=== PATIENT | male | born 1960 | race African-American/Black ===

== ENCOUNTER 2018-09-22 13:16 | Inpatient (IN) | payer OTHER ==
[~2018-09-22] VITALS: Ht 180.3 cm; Wt 68.0 kg
[~2018-09-22 13:16] MED LIST: ERYTHROMYCIN E3.5 G3 OPHTHALMIC
[2018-09-22] MEDS ORDERED: NOHOMEMEDICATIONS (13:22)
[2018-09-22 13:32] LABS: ABSOLUTE BASOPHILS 0.1 thou/uL (0.0-0.2); ABSOLUTE EOSINOPHILS 0.1 thou/uL (0.0-0.7); ABSOLUTE LYMPHOCYTES 1.7 thou/uL (0.8-5.3); ABSOLUTE MONOCYTES 0.7 thou/uL (0.0-1.2); ABSOLUTE NEUTROPHILS 2.2 thou/uL (1.6-8.1); BASOPHILS 1.4 %; HEMATOCRIT 47.3 % (42.0-52.0); HEMOGLOBIN 15.3 gm/dL (14.0-18.0); MCH 28.6 pg (26.0-34.0); MCHC 32.3 g/dL (28.0-37.0); MCV 88.7 fL (80.0-100.0); MONOCYTES 14.6 %; MPV 8.6 fl. (7.2-11.1); NUCLEATED RBCS 0 /100WBC; PLATELET COUNT* 200 thou/uL (150-400); RBC 5.34 mil/uL (4.50-6.00); RDW-CV 14.9 % (10.5-14.5); WBC 4.8 thou/uL (4.0-11.0)
[2018-09-22 13:52] LABS: ANION GAP 9 mmol/L (7-16); BUN 19 mg/dL (7-18); CALCIUM 8.7 mg/dL (8.5-10.1); CHLORIDE 104 mmol/L (98-107); CO2 24 mmol/L (21-32); GLUCOSE 165 mg/dL (70-99); POTASSIUM 3.3 mmol/L (3.5-5.1); SODIUM 137 mmol/L (136-145)
[2018-09-22 13:57] LABS: ALBUMIN 2.8 g/dL (3.4-5.0); ALKALINE PHOSPHATASE 101 U/L (46-116); CREATININE 1.4 mg/dL (0.6-1.3); LIPASE 148 U/L (73-393); MAGNESIUM 1.8 mg/dL (1.8-2.4); NT-PRO BRAIN NAT PEPTIDE 95 pg/mL (<300); SGOT 15 U/L (15-37); SGPT 15 U/L (30-65); TOTAL BILIRUBIN 0.2 mg/dL (<0.1-1.0); TOTAL PROTEIN 6.8 g/dL (6.4-8.2); TROPONIN-I LEVEL <0.06 ng/mL (<0.06)
[2018-09-22] MEDS ORDERED: NORCO 5-325 TA1 EAC1 PO (15:10)
--- NOTE | 2018-09-22 16:12 | EKG ---
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
[2018-09-22 16:27] LABS: CALCIUM 8.9 mg/dL (8.5-10.1); CREATININE 1.2 mg/dL (0.6-1.3); POTASSIUM 4.1 mmol/L (3.5-5.1)
[2018-09-22 18:40] VITALS: BP 150/98
[2018-09-22 18:46] VITALS: BP 147/97
--- NOTE | 2018-09-22 19:12 | NUR ---
ASSUMED PT CARE AT 1840, CAME FROM ER. PT GET SITUATED TO ROOM. TRACING SR ON CARPET WINDER. AOX4, UP AD FABRIZIO. RA. L AC IV ACCESS INTACT. VSS. CALL LIGHT WITHIN REACH. HOURLY ROUNDING GIVE REPORT TO ICE CREAM SCOOPER NURSE.
[2018-09-22 20:00] VITALS: BP 143/82
[2018-09-22 23:55] VITALS: BP 101/65
[2018-09-23 04:00] VITALS: BP 125/80
--- NOTE | 2018-09-23 04:56 | NUR ---
ASSUMED PT CARE AT 1910. PT VOICED NO CONCERNS/DENIES CHEST PAIN THIS SHIFT. 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 PT UP AD FABRIZIO. HOURLY ROUNDING COMPLETED. CALL LIGHT WITHIN REACH. NPO FOR CARDIOLOGY CONSULT.
[2018-09-23 05:39] LABS: HEMATOCRIT 48.3 % (42.0-52.0); HEMOGLOBIN 15.9 gm/dL (14.0-18.0); MCH 29.1 pg (26.0-34.0); MCHC 32.9 g/dL (28.0-37.0); MCV 88.6 fL (80.0-100.0); MPV 8.9 fl. (7.2-11.1); RBC 5.45 mil/uL (4.50-6.00); RDW-CV 15.3 % (10.5-14.5); WBC 4.4 thou/uL (4.0-11.0)
[2018-09-23 06:05] LABS: ANION GAP 8 mmol/L (7-16); BUN 20 mg/dL (7-18); CALCIUM 8.8 mg/dL (8.5-10.1); CHLORIDE 106 mmol/L (98-107); CO2 26 mmol/L (21-32); CREATININE 1.3 mg/dL (0.6-1.3); GLUCOSE 100 mg/dL (70-99); POTASSIUM 4.1 mmol/L (3.5-5.1); SODIUM 140 mmol/L (136-145); TROPONIN-I LEVEL <0.06 ng/mL (<0.06)
[2018-09-23 08:00] VITALS: BP 141/91
--- NOTE | 2018-09-23 10:21 | EKG ---
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[place] : 1960 Requested By: Jamie Aguayo Order Number: [id number] MD: Ilana Coronado Measurements Intervals [place] Rate: 78 P: 72 MI: 132 QRS: -17 QRSD: 90 T: 56 QT: 374 QTc: 426 Interpretive Statements Sinus rhythm Left ventricular hypertrophy ST elevation, consider early repolarization Compared to ECG 09/22/2018 13:20:13 ST (T wave) deviation still present Electronically Signed On 09-23-2018 10:21:00 CDT by Ilana Coronado [email or web address] <ELECTRONICALLY SIGNED> By: Ilana Coronado MD, [facility] 09/23/18 1021 1511 1511 Ilana Coronado MD, [facility] /EPI
[2018-09-23 11:47] VITALS: BP 138/85
--- NOTE | 2018-09-23 13:10 | 2DMMODE ---
[place] [address] 2 D/M-MODE ECHOCARDIOGRAM Name: ILANA ACE Room: [address] IN [facility]#: [id number] Admission: 09/22/18 Attend Phys: Levon Solis Discharge: Date of : 56 Date of Service: 09/23/18 1309 Report #: [id number] THIS REPORT FOR: //name// APPROVED REPORT Study performed: 09/23/2018 11:48:55 EXAM: Comprehensive 2D, Doppler, and color-flow Echocardiogram Patient Location: In-Patient Room #: [facility] Status: routine BSA: 1.92 HR: 69 bpm Rhythm: NSR Other Information Study Quality: Good Indications Chest Pain 2D Dimensions IVSd: 10.96 (7-11mm) LVOT Diam: 21.22 (18-24mm) LVDd: 54.93 mm PWd: 9.60 (7-11mm) Ascending Ao: 27.04 (22-36mm) LVDs: 48.30 (25-40mm) Aortic Root: 28.78 mm LV Single Plane 4CH: 35.10 % Volumes Left Atrial Volume (Systole) LA ESV Index: 30.70 mL/m2 Aortic Valve AoV Peak Fawad.: 1.21 m/s AO Peak Gr.: 5.82 mmHg LVOT Max P.89 mmHg AO Mean Gr.: 3.24 mmHg LVOT Mean P.32 mmHg LVOT Max V: 0.85 m/s AO V2 VTI: 20.34 cm LVOT Mean V: 0.52 m/s DAMIÁN (VTI): 2.54 cm2 LVOT V1 VTI: 14.60 cm Mitral Valve E/A Ratio: 0.91 MV Decel. Time: 205.12 [place] [address] 2 D/M-MODE ECHOCARDIOGRAM Name: ILANA ACE Room: [address] IN [facility].#: [id number] Admission: 09/22/18 Attend Phys: Levon Solis Discharge: Date of : 56 Date of Service: 09/23/18 1309 Report #: [id number] MV E Max Fawad.: 0.49 m/s MV PHT: 59.49 ms MVA (PHT): 3.70 cm2 TDI E/Lateral E': 5.44 E/Medial E': 7.00 Medial E' Fawad.: 0.07 m/s Lateral E' Fawad.: 0.09 m/s Pulmonary Valve PV Peak Fawad.: 0.84 m/s PV Peak Gr.: 2.84 mmHg Tricuspid Valve RAP Estimate: 5.00 mmHg TR Peak Gr.: 24.14 mmHg RVSP: 29.00 mmHg PA Pressure: 29.00 mmHg Left Ventricle The left ventricle is normal size. There is global hypokinesis of the left ventricle. There is normal left ventricular wall thickness. Left ventricular systolic function is severely decreased. LVEF is 25-30%. Grade I - abnormal relaxation pattern. Right Ventricle The right ventricle is normal size. The right ventricular systolic function is normal. Atria Left atrium is mildly dilated. The right atrium size is normal. Aortic Valve Mild aortic valve sclerosis. No aortic regurgitation is present. There is no aortic valvular stenosis. Mitral Valve The mitral valve is normal in structure. Mild mitral regurgitation. No evidence of mitral valve stenosis. Tricuspid Valve The tricuspid valve is normal in structure. Trace tricuspid regurgitation. estimated pa pressure 30 mm Hg Pulmonic Valve The pulmonary valve is normal in structure. There is no pulmonic [place]vular [place] [address] 2 D/M-MODE ECHOCARDIOGRAM Name: ILANA ACE Room: [address]#: [id number] Admission: 09/22/18 Attend Phys: Levon Solis Discharge: Date of : 56 Date of Service: 09/23/18 1309 Report #: [id number] Great Vessels The aortic root is normal in size. IVC is normal in size and collapses >50% with inspiration. Pericardium There is no pericardial effusion. <Conclusion> LVEF is 25-30%. Left atrium is mildly dilated. Mild mitral regurgitation. Trace tricuspid regurgitation. estimated pa pressure 30 mm Hg <ELECTRONICALLY SIGNED> By: Ilana Coronado MD, FACC 09/23/18 1309 1309 1309 Ilana Coronado MD, FACC /INF
--- NOTE | 2018-09-23 13:35 | NUR ---
ASSUMED CARE OF PATIENT THIS AM AT 0730. PATIENT IS ALERT AMD ORIENTED X 4. HE DENIES CHEST PAIN AND SOA. TELE SHOWS NSR. PATIENT KEPT NPO FOR CARDIOLOGY. STRESS ECHO ORDERED. PATIENT TAKEN DOWN FOR TESTS PER W/C. STRESS ECHO CANCELLED DUE TO LOW EF. PATIENT RETURNED TO THE ROOM AND DIET WAS ORDERED. TIN RECOVERY WORKER WILL DISCUSS TX OPTIONS WITH PATIENT. WILL CONTINUE TO MONITOR COMFORT. NO FALLS OR INJURY.
--- NOTE | 2018-09-23 15:16 | NUR ---
Pt asleep when CM went to assess, will f/u later
[2018-09-23 16:00] VITALS: BP 144/94
[2018-09-23 20:00] VITALS: BP 156/98
[2018-09-23 23:55] VITALS: BP 144/92
[2018-09-24] VITALS (7 sets, daily range): BP systolic 118–151; BP diastolic 67–98
[2018-09-24 05:23] LABS: CHOLESTEROL 181 mg/dL (<200); HDL CHOLESTEROL 43 mg/dL (>40); LDL CHOLESTEROL 115 mg/dL (<100); TC:HDL 4.2 Ratio (Not establshd); TRIGLYCERIDE 119 mg/dL (<150); VLDL 24 mg/dL (<40)
[2018-09-24 05:26] LABS: SERUM ASSESSMENT Clear
--- NOTE | 2018-09-24 05:39 | NUR ---
ASSUMED PATIENT CARE AT 1900. PATIENT ALERT AND ORIENTED TIMES FOUR. NO COMPLAITS OF PAIN OR DISCOMFORT NOTED. PROJECT COACH AND HOURLY ROUNDING COMPLETED CHARTED.
--- NOTE | 2018-09-24 10:22 | NUR ---
ASSUMED CARE OF PT AROUND 0730 THIS AM. REFER TO ASSESSMENT. 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 DENIED PAIN THIS AM. REQUESTING NICOTINE PATCH POST CARDIAC CATH. WILL DISCUSS WITH PHYSICIAN. NO OTHER CONCERNS AT THIS TIME. CLWR. WCTM.
--- NOTE | 2018-09-24 11:44 | CARD ---
[address] [address] CARDIAC CATH REPORT Name: ILANA ACE Room: [address] IN [facility]#: [id number] Admission: 09/22/18 Attend Phys: Levon Baird, Discharge: Date of : 56 Report #: [id number] THIS REPORT FOR: //name// APPROVED REPORT Study performed: 09/24/2018 09:14:55 Patient Details Patient Status: In-Patient Room #: 212 The patient is a 58 year-old male Event Personnel Cheng Rosen Accountant Machine Processing, Gail Cortes Bobtail Driver, Eduar Fraga (R) Monitor, Bert Recinos MANAGER SUPPLIER Scrub Procedures Performed Left Heart Cath w/or w/o Coronaries Procedure Narrative A Slender Glidesheath sheath was inserted into the right radial artery. Coronary angiography was performed using coronary diagnostic catheters. The right coronary system was accessed and visualized with a Diagnostic 3DRC 5fr catheter. The left coronary system was accessed and visualized with a Diagnostic DCR: [place] 4.0 5fr catheter. The left ventricle was accessed and visualized with a Diagnostic PC: [place] 5fr catheter. Left ventricular/Aortic Valve gradient assessed via catheter pullback. The patient tolerated the procedure well and there were no complications associated with the procedure. Intraoperative Conscious Sedation Sedation start time: 10:14 Case end Time: 10:30 Fentanyl 25 mcg Versed 2 mg Fluoro Time: 5.9 minutes Dose: DAP 2713 cGycm2 418 mGy Contrast Type and Amount: Omnipaque 80 ml Coronary Angiography The patient's coronary anatomy is right dominant. [place] Artery Percent Stenosis Left Main: 0 % Prox LAD: 0 % Mid/Distal LAD: 0 % Circumflex: 0 % RCA: 0 % Ramus: 0 %[place] [address] CARDIAC CATH REPORT Name: ILANA ACE Room: [address]#: [id number] Admission: 09/22/18 Attend Phys: Levon Barid, Discharge: Date of : 56 Report #: [id number] Left Ventriculography The left ventricle is normal in size with reduced contractility. The left ventricular ejection fraction is estimated to be 45-50%. Left ventricular wall motion abnormalities are not present. There is no mitral insufficiency. Hemodynamics The aortic pressure is 122/82 mmHg with a mean of 90 mmHg. The left ventricular pressure is 116/1 mmHg with a mean of mmHg. The left ventricular end diastolic pressure is 4 mmHg. Conclusion 1. normal coronary arteries 2. NICM Recommendations Aggressive Medical Therapy <ELECTRONICALLY SIGNED> By: Cheng Rosen MD, [facility] 09/24/18 1143 1143 1143Cheng Rosen MD, FACC /INF
--- NOTE | 2018-09-24 14:00 | CON ---
[address] [address] CONSULTATION Name: ILANA ACE Room: [address] IN .R.#: [id number] Admission: 09/22/18 Attend Phys: Levon Baird, Discharge: Date of : 56 Report #: [id number] THIS REPORT FOR: //name// CC: [place] physician/PCP Levon Baird DATE OF SERVICE: 09/23/2018 HISTORY OF PRESENT ILLNESS: The patient is a 58-year-old black male who I was asked to see in the hospital after he complained of chest pain. The patient has no previous history of heart disease. In fact, he has not seen a doctor for several years. He does not exercise on a regular basis. He does note that when he weighs more than 155 pounds, he will have a discomfort in his chest. Yesterday, he was at work when he felt a discomfort in his chest, felt short of breath, diaphoretic, somewhat nauseated. He describes a sharp pain. There is no radiation of the pain. His brought him to the Emergency Room. The pain lasted several hours and then resolved. I was asked to see him for further evaluation and treatment. He denied the pain being related to food. He had no belch with the episode. He has had no recent bleeding. Denied any rash on his chest. He has had a cough, but the pain is not related to coughing. He denies exertional dyspnea, palpitations, syncope or leg pain. PAST MEDICAL HISTORY: He has had no surgical procedures. No history of hypertension, diabetes, hyperlipidemia. MEDICATIONS: He is on no medications. ALLERGIES: He has no known drug allergies. FAMILY HISTORY: Negative for heart disease. SOCIAL HISTORY: He is . He and his live in [place]. 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 Unfortunately, he has no medical insurance. He smokes half pack of cigarettes a day. Rarely drinks alcohol. No illicit drug use. REVIEW OF SYSTEMS: He has had no history of stroke, asthma. He has had a peptic ulcer in the past. No liver disease, no kidney disease, no cancer. No psychiatric illness. No chronic skin condition. PHYSICAL EXAMINATION: GENERAL: Revealed a middle-aged male, lying in bed. He appeared in no distress. VITAL SIGNS: He had a blood pressure of 130/80, pulse is 80. He was afebrile. HEENT: He was anicteric. Conjunctivae pink. Mucous membranes moist. NECK: Neck veins were nondistended. No carotid bruits[place] [address] CONSULTATION Name: ILANA ACE Room: [address] IN ..#: [id number] Admission: 09/22/18 Attend Phys: Levon Baird, Discharge: Date of : 56 Report #: [id number] CHEST: Clear to auscultation. CARDIOVASCULAR: Regular rate and rhythm. ABDOMEN: Soft. EXTREMITIES: Had no edema. Posterior tibial pulse 2+ bilaterally. SKIN: Warm, dry. NEUROLOGIC: Nonfocal. LYMPH: No adenopathy. MUSCULOSKELETAL: No joint effusion. LABORATORY DATA: His ECG on admission yesterday showed a normal sinus rhythm with early repolarization, otherwise unremarkable ECG. His workup yesterday in the Emergency Room, he had a portable chest x-ray that showed normal heart size, clear lung nieto. His lab work, sodium 140, BUN 20, creatinine 1.3, glucose 100. Liver function studies were normal. Troponins all 0.06. White blood cell count 4.4, hemoglobin 15.9. IMPRESSION AND RECOMMENDATIONS: 1. Chest pain. Risk factor is coronary artery disease. No evidence of acute coronary syndrome. Recommend stress echocardiogram. 2. Tobacco abuse. <ELECTRONICALLY SIGNED> By: Ilana Coronado MD, FACC 09/24/18 1400 0855 [id number] Coronado MD, FACC /nt
[2018-09-24] MEDS ORDERED: COZAAR 25 MG TA25 M1 PO (14:03)
[2018-09-24] MEDS ORDERED: CARVEDILOL3.125 MG PO (14:03)
--- NOTE | 2018-09-24 15:04 | NUR ---
DC INSTRUCTIONS GIVEN TO PATIENT AT THIS TIME. PT VERBALIZES UNDERSTANDING. TWO SCRIPTS AND WORK RELEASE GIVEN AT DC. NO OTHER CONCERNS AT THIS TIME. CLWR. WCTM.
--- NOTE | 2018-09-28 10:39 | D ---
[address] [address] DISCHARGE SUMMARY Name: ILANA ACE Room: [address]#: [id number] Admission: 09/22/18 Attend Phys: Levon Baird, Discharge: 09/24/18 Date of : 56 Report #: [id number] THIS REPORT FOR: //name// CC: [place] physician/PCP Levon Baird DATE OF SERVICE: 09/24/2018 DISCHARGE DIAGNOSES: 1. Cardiomyopathy. 2. Nonischemic cardiomyopathy. 3. Hypokalemia. 4. Tobaccoism. HOSPITAL COURSE: The patient is a 58-year-old gentleman who presented to us here complaining of chest pain. He had labs drawn and his troponin is negative. His EKG showed ST elevation because of possible early repolarization. Cardiology was consulted. An echo was done, which showed an EF of 25-30%, so Dr. Coronado decided to do a cardiac catheterization in the patient, which showed normal coronaries. Dr. Coronado recommended to discharge the patient home today with losartan and carvedilol and follow up with them in about 1-2 weeks. The patient will then be discharged to home. DISCHARGE PHYSICAL EXAMINATION: VITAL SIGNS: Temperature 36.5, heart rate of 77, respirations 17, blood pressure 151/90, 100% on room air. GENERAL: The patient is alert. He is oriented x 3, not in acute respiratory distress. HEAD, EYES, EARS, NOSE, AND THROAT: Normocephalic, atraumatic. Nares patent. Clear pharynx. NECK: Supple. No lymphadenopathy. No JVD. CARDIOVASCULAR: Normal rate, regular rhythm. No murmurs noted. RESPIRATORY: Clear to auscultation bilaterally. No wheeze. No crackles. GASTROINTESTINAL: Abdomen is soft, nontender, nondistended. Good bowel sounds. No organomegaly. GENITOURINARY: Deferred. MUSCULOSKELETAL: Good strength. NEUROLOGIC: Grossly normal. PSYCHIATRIC: The patient is calm and cooperative. The patient is to follow up with PCP in 3-5 days, Cardiology in 1-2 weeks and notify physician if there is fever of 38, chest pain, shortness of breath. DIET: 2 [place] [address] DISCHARGE SUMMARY Name: ILANA ACE Room: [address]#: [id number] Admission: 09/22/18 Attend Phys: Levon Baird, Discharge: 09/24/18 Date of : 56 Report #: [id number] ACTIVITY: Okay to discharge him today. DISCHARGE MEDICATIONS: Include carvedilol 3.125 mg b.i.d. and losartan 25 mg at bedtime. Continue the patient on [place] 5/325 every 6 hours as needed. I spent 32 minutes taking care of this patient today. <ELECTRONICALLY SIGNED> By: Felicita Hunter MD 09/28/18 1039 1200 [id number] Hunter MD /[facility]
== END 2018-09-24 15:05 | disposition home or self-care (01) | DRG 287 ==
LOC: M.ERS 13:16 → M.TBA-ER 15:22 → M.2W 15:22
PROVIDERS: Emergency Medicine Emergency Medical Services; Internal Medicine Cardiovascular Disease; ADMIT Family Medicine
PROC: B2111ZZ Fluoroscopy of Multiple Coronary Arteries using Low Osmolar Contrast (ICD-10-PCS; principal; 2018-09-24)
PROC: 4A023N7 Measurement of Cardiac Sampling and Pressure, Left Heart, Percutaneous Approach (ICD-10-PCS; principal; 2018-09-24)
DX: R07.89 Other chest pain (principal); I42.8 Other cardiomyopathies; E87.6 Hypokalemia; F17.210 Nicotine dependence, cigarettes, uncomplicated; Z79.82 Long term (current) use of aspirin; Z79.899 Other long term (current) drug therapy

== ENCOUNTER 2020-06-03 23:59 | Emergency (ER) | payer OTHER ==
[~2020-06-03] VITALS: Ht 180.3 cm; Wt 70.3 kg
[~2020-06-03 23:59] MED LIST changes: +CARVEDILOL3.125 MG PO; +COZAAR 25 MG TA25 M1 PO; +NOHOMEMEDICATIONS; +NORCO 5-325 TA1 EAC1 PO
[2020-06-04 01:41] VITALS: BP 151/98
== END 2020-06-04 01:41 | disposition home or self-care (01) ==
LOC: M.ERS 23:59
DX: L97.528 Non-pressure chronic ulcer of other part of left foot with other specified severity (principal)